=== PATIENT | male | born 1995 | race Caucasian/White ===

== ENCOUNTER 2017-01-25 20:08 | Emergency (ER) | payer OTHER ==
[~2017-01-25] VITALS: Ht 182.9 cm; Wt 86.3 kg
[2017-01-25 20:28] VITALS: BP 141/95
[2017-01-25] MEDS ORDERED: HYDR-971 PO (22:15)
[2017-01-25] MEDS ORDERED: IBUP600T16 PO (22:15)
--- NOTE | 2017-01-25 22:17 | PHYS DOC ---
Past History Past Medical History: No Pertinent History Past Surgical History: No Surgical History Alcohol Use: None Drug Use: None Adult General Chief Complaint Chief Complaint: MECHANICAL FALL HPI HPI Patient is a 21-year-old gentleman who presents here today secondary to falling down approximately 45 steps. Patient reports he was playing with his pupil as possible jumped on him and laying on him and he ended up falling down several steps. Patient denies any loss of consciousness. Patient denies any pain to his back. Patient has a nausea vomiting diarrhea abdominal vision blurred vision. Patient complaining of pain to his left shoulder and scapula. Patient also complaining of pain to his left ribs. Patient denies any other past medical history. Patient denies any hypertension diabetes liver longer kidney problems. Patient reports he does smoke. Patient does not drink or do drugs. Patient is allergic to any medications. Patient's physical exam is significant for tenderness to palpation to his left scapula. Patient has full range of motion intact however it is with pain. Patient has no bony defect or deformity noted. Patient has good pulses and is neurovascularly intact. Patient's chest is clear without any wheezing rales or rhonchi. There is no crepitance. There is no point bony tenderness to palpation of all drips. Review of systems: Constitutional: Denies fever or chills Eyes: Denies change in visual acuity, redness, or eye pain HENT: Denies nasal congestion or sore throat All other review systems are negative except as documented in the history of present illness portion. Physical exam: Constitutional: Well developed, well nourished, no acute distress, non-toxic appearance. HENT: Normocephalic, atraumatic, bilateral external ears normal, nose normal. No C-spine T-spine or L-spine tenderness to palpation. Eyes: EOMI, conjunctiva normal, no discharge. Neck: Normal range of motion, no tenderness, supple, no stridor. Cardiovascular:Heart rate regular rhythm Lungs & Thorax: Bilateral breath sounds clear to auscultation no respiratory distress Abdomen: Bowel sounds normal, soft, no tenderness, no masses, no pulsatile masses. No left upper quadrant or right upper quadrant tenderness to palpation. No palpable crepitance. Skin: Warm, dry, no erythema, no rash. Back: No tenderness, no CVA tenderness. Extremities: See above. Neurologic: Alert and oriented X 3, normal motor function, normal sensory function, no focal deficits noted. Psychologic: Affect normal, judgement normal, mood normal. Patient had a chest x-ray which revealed no infiltrates or effusions subcutaneous air or bony fractures. Interpreted by ER M.D. Shoulder x-ray revealed no fractures or dislocations. Interpreted by ER M.D. Assessment and plan Shoulder sprain/contusion secondary to fall. Patient's clinically hemodynamically stable. There is no acute fracture noted on chest x-ray or shoulder x-ray. Patient be discharged home with appropriate anesthesia. Patient was given Dilaudid 1 mg IM in the ED to help with his pain. Current Medications Current Medications Current Medications Medications (Trade) Dose Ordered Sig/Marleny Start Time Stop Time Status Last Admin Dose Admin Hydromorphone HCl (Dilaudid) 1 mg 1X ONCE 01/25/17 22:30 01/25/17 22:31 Ibuprofen (Motrin) 600 mg 1X ONCE 01/25/17 22:30 01/25/17 22:31 Ondansetron HCl (Zofran Odt) 4 mg 1X ONCE 01/25/17 22:30 01/25/17 22:31 Allergies Allergies Allergies Coded Allergies Type Severity Reaction Last Updated Verified No Known Drug Allergies 01/25/17 No Current Patient Data Vital Signs Vital Signs Date Time Temp Pulse Resp B/P (MAP) Pulse Ox O2 Delivery O2 Flow Rate FiO2 01/25/17 20:28 98.0 87 20 Room Air EKG EKG [] Radiology/Procedures Radiology/Procedures [] Course & Med Decision Making Course & Med Decision Making Pertinent Labs and Imaging studies reviewed. (See chart for details) [] Dragon Disclaimer Dragon Disclaimer This chart was dictated in whole or in part using Voice Recognition software in a busy, high-work load, and often noisy Emergency Department environment. It may contain unintended and wholly unrecognized errors or omissions. Departure Departure: Impression: Primary Impression: Shoulder pain, acute Additional Impression: Contusion of rib on left side Disposition: HOME, SELF-CARE Condition: IMPROVED Referrals: PCP,NO (PCP) Patient Instructions: Arm Sling Use-Brief, Rib Contusion, Shoulder Joint Replacement, Care After Scripts Hydrocodone Bit/Acetaminophen (NORCO 5-325 TABLET) 1 Each Tablet 1 TAB PO PRN Q6HRS Y for PAIN, #12 TAB 0 Refills Prov: TATA ROSEN MD 01/25/17 Ibuprofen (IBUPROFEN) 600 Mg Tablet 600 MG PO QID Y for PAIN, #20 Prov: TATA ROSEN MD 01/25/17 Problem Qualifiers Primary Impression: Shoulder pain, acute Laterality: left Qualified Codes: M25.512 - Pain in left shoulder TATA ROSEN MD Jan 25, 2017 22:17
[2017-01-25] MEDS ORDERED: ONDANSETRON ODT 4 MG TAB.RAPDIS PO ONE (22:30)
[2017-01-25] MEDS ORDERED: HYDROmorphone PF 1 MG/ML DISP.SYRIN IM ONE (22:30)
[2017-01-25] MEDS ORDERED: IBUPROFEN 600 MG TABLET. PO ONE (22:30)
--- NOTE | 2017-01-26 08:55 | RAD ---
AP chest, 01/25/2017: History: Injury, shoulder and chest pain The heart size and pulmonary vascularity are normal. No pulmonary infiltrates are seen. There is no evidence of pleural fluid or pneumothorax. IMPRESSION: No acute cardiopulmonary abnormality is detected.
--- NOTE | 2017-01-26 13:16 | RAD ---
Shoulder x-rays Indication: Injury from fall on stairs today, severe left shoulder and chest pain Technique: 3 views of the left shoulder Comparison: None Findings: No acute fracture or dislocation. No acromioclavicular or glenohumeral joint osteoarthritis. Left lung is clear. Impression: No acute fracture or dislocation. MTDD
== END 2017-01-25 22:31 | disposition home or self-care (01) ==
LOC: ER 20:08
DX: S20.212A Contusion of left front wall of thorax, initial encounter (principal); M25.512 Pain in left shoulder; R11.2 Nausea with vomiting, unspecified; R19.7 Diarrhea, unspecified; H53.8 Other visual disturbances; W10.9XXA Fall (on) (from) unspecified stairs and steps, initial encounter; Y93.89 Activity, other specified; Y99.8 Other external cause status; Y92.89 Other specified places as the place of occurrence of the external cause
CPT/HCPCS: 71010; 73030; 96372; 99284; J1170; Q0162

== ENCOUNTER 2017-02-25 20:02 | Emergency (ER) | payer OTHER ==
[~2017-02-25] VITALS: Ht 182.9 cm; Wt 82.7 kg
[2017-02-25 20:02] VITALS: BP 114/52
[~2017-02-25 20:02] MED LIST: HYDR-971 PO; IBUP600T16 PO
--- NOTE | 2017-02-25 22:05 | RAD ---
Three-view right wrist study HISTORY: Right wrist pain after injury FINDINGS: No acute fracture or dislocation or osteolytic process is seen. IMPRESSION: No acute fracture. Electronically signed by: Ivan Blount MD (02/25/2017 10:02 PM) [facility]
[2017-02-25] MEDS ORDERED: NAPROXEN 500 MG TABLET PO ONE (22:30)
--- NOTE | 2017-02-26 01:17 | ED.ADGEN ---
Past History Past Medical History: No Pertinent History Past Surgical History: No Surgical History Alcohol Use: None Drug Use: None Adult General HPI HPI Patient is a 21-year-old man, with no significant past medical history, who presents to the emergency department with a complaint of hand and wrist pain. Patient states that he was boxing, punching a heavy bag, 9 days ago, when he again feeling pain and soreness in his wrist and right hand. No discrete injuries reported. Denies striking any other objects or any other locations of discomfort. Patient is right-handed. Patient states that he was seen by his primary care provider's office several days ago, at that time states it x-rayed and was told "that I had a broken bone in my wrist". He states he was told that the orthopedic office would contact him and that he needed to follow-up to have a splint placed. Patient presents with a prescription stating that a thumb spica splint needs to be applied to the right hand and wrist. Patient does have a disc with him which -he states contains his x-rays. He does not have any answer report, I cannot give additional information regarding the orthopedist with whom he was supposed to follow, or the exact nature of the fracture that was described. Patient has not had a splint placed since he was evaluated. 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 Patient has not been taking any medications for pain prior to coming to the ED. Review of Systems Review of Systems Constitutional: Denies fever or chills [] Eyes: Denies change in visual acuity, redness, or eye pain [] HENT: Denies nasal congestion or sore throat [] Respiratory: Denies cough or shortness of breath [] Cardiovascular: No additional information not addressed in HPI [] GI: Denies abdominal pain, nausea, vomiting, bloody stools or diarrhea [] : Denies dysuria or hematuria [] Musculoskeletal: Denies back pain, complaining of pain in the right wrist and hand. Integument: Denies rash or skin lesions [] Neurologic: Denies headache, focal weakness or sensory changes [] Endocrine: Denies polyuria or polydipsia [] Current Medications Current Medications Current Medications Medications (Trade) Dose Ordered Sig/Marleny Start Time Stop Time Status Last Admin Dose Admin Naproxen (Naprosyn) 500 mg 1X ONCE 02/25/17 22:30 02/25/17 22:31 DC 02/25/17 22:30 500 MG Allergies Allergies Allergies Coded Allergies Type Severity Reaction Last Updated Verified No Known Drug Allergies 01/25/17 No Physical Exam Physical Exam Constitutional: Well developed, well nourished, no acute distress, non-toxic appearance. [] HENT: Normocephalic, atraumatic, bilateral external ears normal, oropharynx moist, no oral exudates, nose normal. [] Eyes: PERRLA, EOMI, conjunctiva normal, no discharge. [] Neck: Normal range of motion, no tenderness, supple, no stridor. [] Cardiovascular:Heart rate regular rhythm, no murmur, S1, S2, rubs or gallops. [] Lungs & Thorax: Bilateral breath sounds clear to auscultation, no wheezing, no rhonchi, rales. [] Skin: Warm, dry, no erythema, no rash. [] Back: No tenderness, no CVA tenderness. [] Extremities: Patient with tenderness to palpation throughout the dorsal aspect of the right, diffusely, without any bony crepitus or point tenderness, also tender throughout the wrist, again without any focal deformities or discrete abdomen normalities identified. Patient does have positive snuffbox tenderness and tenderness with apical loading. No cyanosis, no clubbing, ROM intact, no edema. [] Neurologic: Alert and oriented X 3, normal motor function, normal sensory function, no focal deficits noted. [] Psychologic: Affect normal, judgement normal, mood normal. [] EKG EKG [] Radiology/Procedures Radiology/Procedures [][place] [address] IMAGING REPORT Signed PATIENT: TAN ALFONSO ACCOUNT: [id number] : 1995 LOCATION: ER AGE: 21 SEX: M EXAM STATUS: REG ER ORD. PHYSICIAN: KIMBERLI MCINTYRE DO REASON: INJURY PROCEDURE: WRIST 3V RIGHT Three-view right wrist study HISTORY: Right wrist pain after injury FINDINGS: No acute fracture or dislocation or osteolytic process is seen. IMPRESSION: No acute fracture. Electronically signed by: Ivan Blount MD (02/25/2017 10:02 PM) [facility] DICTATED AND SIGNED BY: IVAN BLOUNT MD DATE: 02/25/172200 CC: KIMBERLI MCINTYRE DO; PCP,NO ~ Hand x-ray: Right: Three-view: No fracture or subluxation identified, no bony or soft tissue normalities. As interpreted by me. Course & Med Decision Making Course & Med Decision Making Pertinent Labs and Imaging studies reviewed. (See chart for details) As patient cannot give additional history regarding potential type of fracture, and has a prescription as stated that indicates he needs a thumb spica splint, does have axial loading tenderness on injury that occurred approximately 9 days ago, repeat imaging of the hand and wrist were ordered in the ED. No acute fractures were identified. However, based on patient's pain with axial loading, I did discuss a possible scaphoid fracture with the patient, as indication for the placement of a thumb spica splint. Patient was agreeable with plan for placement of splint, also discuss importance of follow-up with orthopedics for additional evaluation and repeat imaging, and need to rest hand and wrist to allow for potential healing, which will preclude him from use of the right hand. Patient received naproxen in the ED, thumb spica splint was placed as stated, patient neurovascularly intact pre-and post, given splint instructions, along contact information for Dr. Olguin of orthopedics, and clear and detailed instructions that would prompt return, along with work note stating he requires clearance from orthopedics for return to activities. Patient discharged home in stable condition with plan and precautions as above.. Final Impression Final Impression [] Problems: Dragon Disclaimer Dragon Disclaimer This electronic medical record was generated, in whole or in part, using a voice recognition dictation system. Splinting [Patient informed of negative x-ray findings, concern for possible occult scaphoid fracture. Agreeable with plan for placement of thumb spica splint. Splint was applied by nurse Pope. Patient with normal pre-and post-neurovascular examination. Tolerated procedure without issue. Departure: Impression: Primary Impression: Wrist pain Additional Impression: Hand pain Disposition: HOME, SELF-CARE Condition: IMPROVED KIMBERLI MCINTYRE DO Feb 26, 2017 01:17
--- NOTE | 2017-02-26 08:21 | RAD ---
Indication injury 3 days previously. Persistent pain. AP oblique and lateral views of the right hand were obtained. No bony abnormality is seen
== END 2017-02-25 23:27 | disposition home or self-care (01) ==
LOC: ER 20:02
DX: M25.531 Pain in right wrist (principal); M79.641 Pain in right hand; W22.8XXA Striking against or struck by other objects, initial encounter; Y93.71 Activity, boxing; Y99.8 Other external cause status; Y92.89 Other specified places as the place of occurrence of the external cause
CPT/HCPCS: 29125; 73110; 73130; 99284-25